=== PATIENT | female | born 1995 | race Two or more races ===

== ENCOUNTER 2025-02-26 10:23 | Emergency (ER) | payer OTHER ==
[~2025-02-26] VITALS: Ht 160 cm; Wt 93.0 kg
[2025-02-26 10:32] VITALS: BP 137/84; O2SAT 100
[2025-02-26] MEDS ORDERED: ZIPSOR25 MG (10:34)
[2025-02-26] MEDS ORDERED: BACLOFEN10 MG PO (11:54)
[2025-02-26] MEDS ORDERED: DICLOFENAC SODI75 MG PO (11:54)
[2025-02-26] MEDS ORDERED: DEXAMETHASONE SODIUM PHOSPHATE 4 MG/ML VIAL IM ONE (12:00)
[2025-02-26] MEDS ORDERED: ORPHENADRINE CITRATE 30 MG/ML AMPUL IM ONE (12:00)
[2025-02-26] MEDS ORDERED: KETOROLAC TROMETHAMINE 60 MG VIAL IM ONE ×2 (12:00→12:22)
[2025-02-26] MEDS ORDERED: ORPHENADRINE CITRATE 30 MG/ML AMPUL ONE (12:22)
[2025-02-26] MEDS ORDERED: DEXAMETHASONE SODIUM PHOSPHATE 4 MG/ML VIAL ONE (12:23)
== END 2025-02-26 13:38 | disposition home or self-care (01) ==
LOC: ER 10:24
DX: M54.50 Low back pain, unspecified (principal); M79.605 Pain in left leg